=== PATIENT | female | born 1975 | race African-American/Black ===

== ENCOUNTER 2021-12-27 08:07 | Inpatient (IN) | payer MEDICAID, OTHER ==
[~2021-12-27] VITALS: Ht 167.6 cm; Wt 72.1 kg
[2021-12-27] VITALS (12 sets, daily range): BP systolic 100–110; BP diastolic 49–58
[2021-12-27 09:25] LABS: MEAN CORPUSCULAR HEMOGLOBIN 18.1 pg (28.0-32.0); MEAN CORPUSCULAR VOLUME 67.5 fL (81.0-99.0); MEAN PLATELET VOLUME 8.6 fl (7.4-10.4); PLATELET 234 x1000/uL (130-400); RED BLOOD CELL COUNT 2.25 mill/uL (4.2-5.4); RED CELL DISTRIBUTION WIDTH 26.9 % (11.6-14.6)
[2021-12-27 09:31] LABS: CHLORIDE 110 mEq/L (98-107)
[2021-12-27 09:39] LABS: HEMOGLOBIN. 4.1 g/dL (12.0-16.0)
[2021-12-27 09:40] LABS: HEMATOCRIT. 15.2 % (36.0-48.0)
[2021-12-27 10:25] LABS: PLATELET ESTIMATE NORMAL
[2021-12-27] MEDS ORDERED: MAGNESIUM/ALUMINUM HYDROXIDE/SIMETHICONE 30ML UDC PO PRN (12:00)
[2021-12-27] MEDS ORDERED: DIPHENHYDRAMINE 50MG/ML VIAL IV PRN (12:00)
[2021-12-27] MEDS ORDERED: ONDANSETRON HCL 4MG/2ML INJ IV PRN (12:00)
[2021-12-27] MEDS ORDERED: ACETAMINOPHEN 650MG/20.3ML UDC GT PRN (12:00)
[2021-12-27] MEDS ORDERED: CLONIDINE 0.1MG TABLET PO PRN (12:00)
[2021-12-27] MEDS ORDERED: GUAIFENESIN 200MG/10ML SUGAR FREE UDC PO PRN (12:00)
[2021-12-27] MEDS ORDERED: NALOXONE HCL 0.4MG/ML VIAL IV PRN (12:15)
[2021-12-27] MEDS ORDERED: IPRATROPIUM/ALBUTEROL 0.5-3(2.5)MG/3ML NEB HHN SCH (12:15)
[2021-12-27 12:27] LABS: HCG SCREEN NEGATIVE
[2021-12-27] MEDS ORDERED: POTASSIUM CHLORIDE 20MEQ TABLET SR PO NR (12:30)
[2021-12-27 15:28] LABS: TOTAL IRON BINDING CAPACITY 451 ug/dL (250-450)
[2021-12-27 16:38] LABS: CLARITY URINE CLEAR (CLEAR); COLOR URINE YELLOW (YELLOW); KETONES URINE TRACE (NEGATIVE); LEUKOCYTE ESTERASE URINE NEGATIVE (NEGATIVE); NITRITE URINE NEGATIVE (NEGATIVE); OCCULT BLOOD URINE NEGATIVE (NEGATIVE); PH URINE 5.5 (4.5-8.0); PROTEIN URINE NEGATIVE (NEGATIVE); SPECIFIC GRAVITY URINE 1.015 (1.005-1.030); UROBILINOGEN URINE 0.2 E.U./dL (0.2-1.0)
[2021-12-27 16:41] LABS: HEMATOCRIT 18.1 % (36.0-48.0); HEMOGLOBIN 5.1 g/dL (12.0-16.0)
[2021-12-27 17:13] LABS: *AMPHETAMINES SCREEN URINE NEGATIVE (NEGATIVE); *BARBITURATES SCREEN URINE NEGATIVE (NEGATIVE); *BENZODIAZEPINES SCREEN URINE NEGATIVE (NEGATIVE); *COCAINE SCREEN URINE NEGATIVE (NEGATIVE); METHADONE URINE SCREEN NEGATIVE (NEGATIVE); OPIATES URINE SCREEN NEGATIVE (NEGATIVE); PHENCYCLIDINE URINE SCREEN NEGATIVE (NEGATIVE)
[2021-12-27 17:24] LABS: CANNABINOID URINE SCREEN PRESUMTIVE POSITIVE (NEGATIVE)
[2021-12-27] MEDS: HYDROCODONE/ACETAMINOPHEN 5/325MG TABLET PO PRN (20:53)
[2021-12-28] VITALS: BP 105/50
[2021-12-28] MEDS: IRON SUCROSE COMPLEX 100 MG/5 ML ML IV SCH ×2 (00:27→12:22)
[2021-12-28 01:17] LABS: HEMATOCRIT 24.3 % (36.0-48.0); HEMOGLOBIN 7.3 g/dL (12.0-16.0)
[2021-12-28 04:00] VITALS: BP 109/57
[2021-12-28 07:21] LABS: BASOPHILS % 0.5 % (0.0-2.0); EOSINOPHILS % 0.1 % (0.0-5.0); HEMATOCRIT. 26.6 % (36.0-48.0); HEMOGLOBIN. 8.1 g/dL (12.0-16.0); MEAN CORPUSCULAR HEMOGLOBIN 22.3 pg (28.0-32.0); MEAN CORPUSCULAR VOLUME 72.7 fL (81.0-99.0); MEAN PLATELET VOLUME 8.7 fl (7.4-10.4); MONOCYTES % 9.2 % (2.0-8.0); NEUTROPHILS % 78.2 % (40.0-76.0); PLATELET 289 x1000/uL (130-400); RED BLOOD CELL COUNT 3.66 mill/uL (4.2-5.4); RED CELL DISTRIBUTION WIDTH 28.4 % (11.6-14.6)
[2021-12-28 07:39] LABS: CHLORIDE 111 mEq/L (98-107)
[2021-12-28] MEDS ORDERED: PANTOPRAZOLE 40MG DR TABLET PO SCH (07:40)
[2021-12-28 07:57] LABS: PHOSPHORUS 2.2 mg/dL (2.5-4.9)
[2021-12-28 08:00] VITALS: BP 125/50
[2021-12-28 08:06] LABS: VITAMIN B12 SERUM 276 pg/mL (211-911)
[2021-12-28] MEDS: HYDROCODONE/ACETAMINOPHEN 5/325MG TABLET PO PRN (09:02)
[2021-12-28 12:00] VITALS: BP 128/51
[2021-12-28 15:28] VITALS: BP 128/51
[2021-12-28 16:00] VITALS: BP 126/53
== END 2021-12-28 16:25 | disposition home or self-care (01) | DRG 760 ==
LOC: ER 08:07 → 7WST 11:08 → EDBEDREQ 11:13 → EDBEDREQTM 11:13 → ENRESERV 11:49
PROVIDERS: ADMIT Internal Medicine; ATTEND Internal Medicine
PROC: 30233N1 Transfusion of Nonautologous Red Blood Cells into Peripheral Vein, Percutaneous Approach (ICD-10-PCS; principal; 2021-12-27)
DX: D25.9 Leiomyoma of uterus, unspecified (principal); D62 Acute posthemorrhagic anemia; I24.9 Acute ischemic heart disease, unspecified; F17.200 Nicotine dependence, unspecified, uncomplicated; E87.6 Hypokalemia; D50.9 Iron deficiency anemia, unspecified; Z82.49 Family history of ischemic heart disease and other diseases of the circulatory system; Z90.710 Acquired absence of both cervix and uterus
CPT/HCPCS: 36415; 71045; 71100; 76856; 80048; 80053; 80305; 81003; 82270; 82607; 82728; 82746; 83540; 83550; 83735; 83880; 84100; 84439; 84443; 84484; 84703; 85014; 85018; 85025; 86850; 86900; 86920; 93005; 93306; 99291; P9016

== ENCOUNTER 2024-07-06 10:50 | Emergency (ER) | payer OTHER ==
[~2024-07-06] VITALS: Ht 167.6 cm; Wt 75.9 kg
[2024-07-06 11:10] VITALS: O2SAT 100
[2024-07-06 13:50] VITALS: BP 110/46; PULSE 79; RESP 14; TEMP 36.7; O2SAT 100
== END 2024-07-06 14:05 | disposition home or self-care (01) ==
LOC: ER 10:50
DX: M25.569 Pain in unspecified knee (principal); F12.90 Cannabis use, unspecified, uncomplicated; Z90.710 Acquired absence of both cervix and uterus
CPT/HCPCS: 99281